=== PATIENT | female | born 1940 | race Caucasian/White ===

== ENCOUNTER → 2016-09-21 | Outpatient (REF) | payer MEDICARE, MEDICAID ==
[~2016-09-21] MED LIST: ALBU17IN INH; ALTA10CA3 PO; ASPI1TAB PO; COUM2TAB10 PO; CRES10TA32 PO; FERR325T3 PO; FURO40TA2 PO; GLIP10TA6 PO; GLIP5TAB8 PO; K-TA10TA2 PO; METO-207 PO; OMEP40CA2 PO; TIZA4CAP3 PO; TRAM50TA2 PO; VENO20IN IV; VITA100037 PO
[2016-09-21 19:32] LABS: PERCENT SATURATION 8.9 % (13.2-37.4)
== END ==
LOC: M LAB REF 17:13
PROVIDERS: ATTEND Internal Medicine Nephrology
DX: N39.0 Urinary tract infection, site not specified (principal); D64.9 Anemia, unspecified

== ENCOUNTER → 2016-09-28 | Outpatient (CLI) | payer MEDICARE, MEDICAID ==
--- NOTE | 2016-09-28 13:22 | REP ---
RENAL AND BLADDER ULTRASOUND: Real-time sonographic evaluation of the kidneys performed and demonstrates both kidneys to be mildly atrophic but normal in echotexture, right kidney measuring 8.6 x 3.7 x 5.4 cm and left kidney 8.5 x 4.6 x 5.1 cm. No renal mass, nephrolithiasis or hydronephrosis is seen. Urinary bladder measures 13.7 x 10.6 x 8.7 cm for a total volume of 825 mL. No mass or calculus is seen. Post void residual is 551 mL which is 67% of the original volume. IMPRESSION: Mild bilateral renal atrophy. No hydronephrosis. Moderate post void residual in the urinary bladder after voiding. Signed by Evin Burgos MD 09/28/2016 02:27 P
== END ==
LOC: M RAD 10:49
PROVIDERS: ATTEND Internal Medicine Nephrology
DX: N18.3 Chronic kidney disease, stage 3 (moderate) (principal); E11.22 Type 2 diabetes mellitus with diabetic chronic kidney disease

== ENCOUNTER → 2017-01-03 | Outpatient (REF) | payer MEDICARE, MEDICAID ==
[~2017-01-03] MED LIST changes: -ALTA10CA3 PO; +ALTA1CAP4 PO; -COUM2TAB10 PO; +COUM2TAB22 PO; -METO-207 PO; +METO1TAB7 PO; -VITA100037 PO; +VITA100067 PO
== END ==
LOC: M SMT 17:00
PROVIDERS: ATTEND Urology
DX: R33.9 Retention of urine, unspecified (principal)

== ENCOUNTER → 2018-01-12 | Outpatient (REF) | payer MEDICARE, MEDICAID ==
[2018-01-12 17:53] LABS: FOLATE > 24.0 NG/ML; VITAMIN B12 LEVEL 1153 PG/ML
[2018-01-12 18:11] LABS: FERRITIN 25 NG/ML (8-252); IRON (FE) 41 UG/DL (50-170); PERCENT SATURATION 11.8 % (13.2-45.0); TOTAL IRON BINDING CAPACITY 348 UG/DL (250-450)
== END ==
LOC: M LAB REF 17:07
DX: D64.9 Anemia, unspecified (principal)
CPT/HCPCS: 82746

== ENCOUNTER 2018-02-01 06:47 | Outpatient (CLI) | payer MEDICARE, MEDICAID ==
[2018-02-01] MEDS ORDERED: IRON SUCROSE 25 MG in NS 50 ML IV (07:15)
[2018-02-01] MEDS ORDERED: IRON SUCROSE 375 MG in NS 250 ML IV (08:15)
== END 2018-02-01 12:15 | disposition home or self-care (01) ==
LOC: M INFU 06:47
DX: D50.9 Iron deficiency anemia, unspecified (principal); Z79.01 Long term (current) use of anticoagulants; Z79.899 Other long term (current) drug therapy; Z79.82 Long term (current) use of aspirin; Z79.84 Long term (current) use of oral hypoglycemic drugs
CPT/HCPCS: 96365

== ENCOUNTER → 2019-03-29 | Outpatient (REF) | payer MEDICARE, MEDICAID ==
[~2019-03-29] MED LIST changes: -ASPI1TAB PO; +ASPI81TA26 PO; +CRES10TA PO; -CRES10TA32 PO; +TIZA4CAP PO; -TIZA4CAP3 PO
[2019-03-29 17:36] LABS: PERCENT SATURATION 23.2 % (13.2-45.0)
== END ==
LOC: M LAB REF 16:48
PROVIDERS: ATTEND Internal Medicine Nephrology
DX: D50.9 Iron deficiency anemia, unspecified (principal)

== ENCOUNTER 2019-04-04 12:40 | Outpatient (CLI) | payer MEDICARE, MEDICAID ==
[~2019-04-04] VITALS: Ht 152.4 cm; Wt 71.7 kg
[~2019-04-04 12:40] MED LIST changes: -OMEP40CA2 PO; +OMEP40CA97 PO
[2019-04-04 12:45] VITALS: BP 135/62
[2019-04-04] MEDS ORDERED: FERRIC CARBOXYMALTOSE INJ 750 MG in NS 250 ML IV ONE (13:00)
[2019-04-04] MEDS ORDERED: FEBU40TA4 PO (13:28)
[2019-04-04] MEDS ORDERED: COUM1TAB14 PO (13:28)
[2019-04-04 13:30] VITALS: BP 126/59
[2019-04-04 14:35] VITALS: BP 127/61
== END 2019-04-04 14:35 | disposition home or self-care (01) ==
LOC: M INFU 12:40
PROVIDERS: ATTEND Internal Medicine Nephrology
DX: D50.9 Iron deficiency anemia, unspecified (principal); Z88.8 Allergy status to other drugs, medicaments and biological substances
CPT/HCPCS: 96365; 96366; J1439

== ENCOUNTER 2019-04-11 12:37 | Outpatient (CLI) | payer MEDICARE, MEDICAID ==
[~2019-04-11] VITALS: Ht 152.4 cm; Wt 71.7 kg
[~2019-04-11 12:37] MED LIST changes: +COUM1TAB14 PO; +FEBU40TA4 PO
[2019-04-11 12:45] VITALS: BP 120/54
[2019-04-11 13:50] VITALS: BP 118/56
[2019-04-11] MEDS ORDERED: FERRIC CARBOXYMALTOSE INJ 750 MG in NS 250 ML IV ONE (14:00)
[2019-04-11 15:20] VITALS: BP 114/54
== END 2019-04-11 15:20 | disposition home or self-care (01) ==
LOC: M INFU 12:37
PROVIDERS: ATTEND Internal Medicine Nephrology
DX: D50.9 Iron deficiency anemia, unspecified (principal); N18.3 Chronic kidney disease, stage 3 (moderate); I12.9 Hypertensive chronic kidney disease with stage 1 through stage 4 chronic kidney disease, or unspecified chronic kidney disease; E11.22 Type 2 diabetes mellitus with diabetic chronic kidney disease; K21.9 Gastro-esophageal reflux disease without esophagitis; E78.00 Pure hypercholesterolemia, unspecified; Z79.82 Long term (current) use of aspirin; Z79.01 Long term (current) use of anticoagulants; Z79.899 Other long term (current) drug therapy
CPT/HCPCS: 96365; J1439

== ENCOUNTER → 2020-07-22 | Outpatient (REF) | payer MEDICARE, MEDICAID ==
[~2020-07-22] MED LIST changes: -COUM1TAB14 PO; +COUM4TAB8 PO
== END ==
LOC: M LAB REF 16:44
PROVIDERS: ATTEND Internal Medicine Nephrology
DX: N39.0 Urinary tract infection, site not specified (principal)

== ENCOUNTER 2020-09-03 15:35 | Inpatient (IN) | payer MEDICARE, MEDICAID ==
[2020-09-03] VITALS (9 sets, daily range): BP systolic 123–159; BP diastolic 55–70
[~2020-09-03] VITALS: Ht 152.4 cm; Wt 74.6 kg
[2020-09-03 16:47] LABS: BASO % 0.3 % (0.0-1.0); EOS # 0.3 10^3/uL (0.0-0.5); EOS % 2.5 % (0.0-3.0); HEMATOCRIT 21.8 % (36.0-47.0); LYMPH # 1.5 10^3/uL (1.5-5.0); LYMPH % 11.5 % (24.0-44.0); MEAN CORPUSCULAR HEMOGLOBIN 29.7 pg (27.0-33.0); MEAN CORPUSCULAR HGB CONC 31.7 g/dl (32.0-36.5); MONO # 0.7 10^3/uL (0.0-0.8); MONO % 5.1 % (2.0-8.0); NEUTROPHILS # 10.4 10^3/uL (1.5-8.5); NEUTROPHILS % 79.8 % (36.0-66.0); PLATELET COUNT, AUTOMATED 258 10^3/uL (150-450); RED BLOOD COUNT 2.32 10^6/uL (4.00-5.40)
[2020-09-03 16:51] LABS: HEMOGLOBIN 6.9 g/dl (12.0-15.5)
[2020-09-03 16:56] LABS: ALBUMIN 3.3 GM/DL (3.2-5.2); ALT/SGPT 17 U/L (12-78); BILIRUBIN,DIRECT < 0.1 MG/DL (0.0-0.2); BILIRUBIN,TOTAL < 0.1 MG/DL (0.2-1.0); BLOOD UREA NITROGEN 81 MG/DL (7-18); CARBON DIOXIDE LEVEL 27 MEQ/L (21-32); CHLORIDE LEVEL 95 MEQ/L (98-107); CREATININE FOR GFR 2.03 MG/DL (0.55-1.30); GLOMERULAR FILTRATION RATE 25.2 (>39); GLUCOSE, FASTING 447 MG/DL (70-100); POTASSIUM SERUM 4.2 MEQ/L (3.5-5.1); SODIUM LEVEL 131 MEQ/L (136-145); TOTAL PROTEIN 6.4 GM/DL (6.4-8.2)
[2020-09-03] MEDS ORDERED: HumuLIN R (REGULAR) INSULIN (NovoLIN R) **100U/ML** PER UNIT IV ONE (17:05)
[2020-09-03 17:06] LABS: INR 1.27; PROTHROMBIN TIME 16.2 SECONDS (12.5-14.3)
[2020-09-03 17:07] LABS: PARTIAL THROMBOPLASTIN TIME 29.5 SECONDS (24.2-38.5)
[2020-09-03] MEDS ORDERED: D31000TA2 PO (17:33)
[2020-09-03] MEDS ORDERED: VICT18IN SC (17:33)
[2020-09-03] MEDS ORDERED: OMEP-218 PO (17:33)
[2020-09-03 18:18] LABS: RSV AMPLIFICATION NEGATIVE (NEGATIVE)
[2020-09-03] MEDS ORDERED: GLUCAGON INJ 1MG VIAL SC PRN (19:25)
[2020-09-03] MEDS ORDERED: DEXTROSE 50% 50 ML SYRINGE IV PRN (19:25)
[2020-09-03] MEDS ORDERED: GLUCOSE 4GM CHEW TABLET PO PRN (19:25)
--- NOTE | 2020-09-03 19:54 | HPEPDOC ---
General Date of Admission 09/03/20 Date of Service: Sep 03, 2020 Chief Complaint The patient is a 80-year-old female admitted with a reason for visit of Abnormal Labs. Source: Patient, RN/MD History of Present Illness 80 year old female with h/o CKD stage 4 Baseline creatinine 1.8 to 2.0, Chronic anemia with usual Hb of 10.0, iron deficiency, h/o DVT and PE in the remote p ast on xarelto, Dm, Neuropathy, neurogenic bladder had chronic mac for 4 years successfully came off mac in jul 2020 went to see the engineering model maker for a routine visit and there blood work showed a hb of 7.0 much lower than baseline so was sent to the ED. She complained of feeling weak and tired. Denied any dizziness or light headedness. Denied any black tarry stools. She does report black hard to soft well formed stools which she attributes to her being on iron. SHe reports that she had a similar episode last year for which she was treated at [facility]. There she had an EGD and colonoscopy done and so source of bleeding was found. Today her xarelto was stopped by engineering model maker. Patient was admitted for symptomatic anemia rule out GIB. Home Medications Scheduled Aspirin (Aspirin EC) 81 Mg Tab, 81 MG PO DAILY, (Reported) Cholecalciferol (Vitamin D3) (Vitamin D3) 1,000 Unit Tablet, 1,000 UNITS PO DAILY, (Reported) Febuxostat (Uloric) 40 Mg Tablet, 40 MG PO Q2D, (Reported) Ferrous Sulfate (Ferrous Sulfate) 325 Mg Tab, 325 MG PO DAILY, (Reported) Furosemide (Furosemide) 40 Mg Tab, 40 MG PO DAILY, (Reported) Glipizide (Glipizide) 10 Mg Tab, 10 MG PO BID, (Reported) Liraglutide (Victoza 2-Dony) 0.6 Mg/0.1 Ml Pen.injctr, 1.2 MG SC DAILY, (Reported) Metoprolol Succinate (Metoprolol Succinate) 50 Mg Tab, 50 MG PO DAILY, (Reported) Omeprazole (Omeprazole) 20 Mg Capsule.dr, 20 MG PO BID, (Reported) Rosuvastatin Calcium (Crestor) 10 Mg Tab, 10 MG PO DAILY, (Reported) Scheduled PRN Tizanidine HCl (Tizanidine HCl) 4 Mg Cap, 4 MG PO TID PRN for SPASMS, (Reported) Tramadol HCl (Tramadol HCl) 50 Mg Tab, 100 MG PO QHS PRN for PAIN, (Reported) Allergies Coded Allergies: No Known Allergies (Unverified , 10/30/13) Past Medical History Medical History HYPERLIPIDEMIA TYPE 2 DIABETES NEUROGENIC BLADDER s/p CHRONIC MAC now better CHRONIC KIDNEY DISEASE ANEMIA HYPERTENSION CARDIOMYOPATHY PULMONARY EMBOLISM LEFT BUNDLE BRANCH BLOCK Surgical History CATARACTS REMOVED 2017 TUBAL LITIGATION 1975 CYSTOSCOPY 04/15/2019 LAP CHOLECYSTECTOMY 09/2019 Family History FATHER: , 75 MOTHER: , 70, DIAGNOSED WITH HEART DISEASE, DIABETES SON: ALIVE, BLOOD CLOT Social History * Smoker: former Smoker (quit more than 10 years ago.) Alcohol: rarely Drugs: denies A-FIB/CHADSVASC A-FIB History Current/History of A-Fib/PAF?: No Review of Systems Constitutional: Reports: Weakness, Fatigue; Denies: Chills, Fever, Night Sweats Eyes: Denies: Pain, Vision change ENT: Denies: Head Aches, Ear Pain, Dysphagia Skin: Denies: Rash, Lesions, Breakdown Pulmonary: Denies: Dyspnea, Cough Cardiovascular: Denies: Chest Pain, Palpitations, Orthopnea, Paroxysmal Noc. Dyspnea, Lt Headedness Gastrointestinal: Reports: Other Symptoms; Denies: Nausea, Vomiting, Abdominal Pain, Diarrhea, Melena, Hematochezia Genitourinary: Reports: Frequency, Other Symptoms; Denies: Incontinence, Retention Hematologic: Denies: Bruising, Bleeding Excessively Physical Examination General Exam: Positive: Alert, Cooperative, No Acute Distress Eye Exam: Positive: PERRLA, Conjunctiva & lids normal, EOMI; Negative: Sclera icteric Neck Exam: Positive: Supple; Negative: JVD, thyromegaly Chest Exam: Positive: Clear to auscultation, Normal air movement Heart Exam: Positive: Rate Normal, Regular Rhythm, Normal S1, Normal S2; Negative: Murmurs, Rubs Abdomen Exam: Positive: Normal bowel sounds, Soft; Negative: Tenderness, Hepatospenomegaly Extremity Exam: Negative: Clubbing, Cyanosis, Edema Vital Signs Vital Signs Date Time Temp Pulse Resp B/P (MAP) Pulse Ox O2 Delivery O2 Flow Rate FiO2 09/03/20 16:33 09/03/20 15:36 95.8 90 18 97 Room Air Laboratory Data Labs 24H Laboratory Tests 2 09/03/20 16:14: Immature Granulocyte % (Auto) 0.8, Neutrophils (%) (Auto) 79.8H, Lymphocytes (%) (Auto) 11.5L, Monocytes (%) (Auto) 5.1, Eosinophils (%) (Auto) 2.5, Basophils (%) (Auto) 0.3, Neutrophils # (Auto) 10.4H, Lymphocytes # (Auto) 1.5, Monocytes # (Auto) 0.7, Eosinophils # (Auto) 0.3, Basophils # (Auto) 0.0, Nucleated Red Blood Cells % (auto) 0.0, Prothrombin Time 16.2H, Prothromb Time International Ratio 1.27, Activated Partial Thromboplast Time 29.5, Anion Gap 9, Glomerular Filtration Rate 25.2L, Calcium Level 9.0, Direct Bilirubin < 0.1, Aspartate Amino Transf (AST/SGOT) 16, Alanine Aminotransferase (ALT/SGPT) 17, Alkaline Phosphatase 130H, Total Protein 6.4, Albumin 3.3, Albumin/Globulin Ratio 1.1L CBC/BMP Laboratory Tests 09/03/20 16:14 Assessment/Plan 80 year old female with h/o CKD stage 4 Baseline creatinine 1.8 to 2.0, Chronic anemia with usual Hb of 10.0, iron deficiency, h/o DVT and PE in the remote past on xarelto, Dm, Neuropathy, neurogenic bladder had chronic mac for 4 years successfully came off mac in jul 2020 went to see the engineering model maker for a routine visit and there blood work showed a hb of 7.0 much lower than baseline so was sent to the ED. She complained of feeling weak and tired. Denied any dizziness or light headedness. Denied any black tarry stools. She does report black hard to soft well formed stools which she attributes to her being on iron. SHe reports that she had a similar episode last year for which she was treated at [facility]. There she had an EGD and colonoscopy done and so source of bleeding was found. Today her xarelto was stopped by engineering model maker. Patient was admitted for symptomatic anemia rule out GIB. Acute on chronic anemia has history of iron deficiency and ckd so at baseline has hb of 10.0 will need to evaluate for GIB vs bone marrow disorders will check iron panel, stool occult blood, SPEP, free light chains. No overt bleeding, May be having slow chronic bleed. Had egd and colonoscopy last year will try to get records. transfuse 2 units. hold ASA pantoprazole iv bid. clear liquids CKD stage 4 creatinine at baseline Remote h/o DVT and Pulmonary embolism Xarelto stopped. Diabetes with neuropathy sugars today uncontrolled Lispro as per sliding scale HLD statin. Plan / VTE VTE Prophylaxis Ordered?: Yes JEWELL CUMMINS MD Sep 03, 2020 17:21
[2020-09-03 20:06] LABS: FOLATE > 24.0 NG/ML; VITAMIN B12 LEVEL 705 PG/ML
[2020-09-03] MEDS: HumaLOG INSULIN (NovoLOG) PER UNIT SC SCH (20:57)
[2020-09-03 21:40] LABS: FERRITIN 20 NG/ML (8-252); IRON (FE) 66 UG/DL (50-170); PERCENT SATURATION 21.4 % (13.2-45.0); TOTAL IRON BINDING CAPACITY 308 UG/DL (250-450)
[2020-09-03] MEDS: PANTOPRAZOLE 40MG VIAL (C9113 PER 1) IV SCH (22:30)
[2020-09-04] VITALS (7 sets, daily range): BP systolic 102–142; BP diastolic 56–64
[2020-09-04 00:30] LABS: HEMOGLOBIN 9.9 g/dl (12.0-15.5)
[2020-09-04 06:08] LABS: BASO # 0.1 10^3/uL (0.0-0.2); BASO % 0.4 % (0.0-1.0); EOS # 0.5 10^3/uL (0.0-0.5); EOS % 3.5 % (0.0-3.0); HEMATOCRIT 29.5 % (36.0-47.0); HEMOGLOBIN 9.7 g/dl (12.0-15.5); LYMPH # 2.3 10^3/uL (1.5-5.0); LYMPH % 16.1 % (24.0-44.0); MEAN CORPUSCULAR HEMOGLOBIN 29.5 pg (27.0-33.0); MEAN CORPUSCULAR HGB CONC 32.9 g/dl (32.0-36.5); MEAN CORPUSCULAR VOLUME 89.7 fl (80.0-96.0); MONO # 1.1 10^3/uL (0.0-0.8); NEUTROPHILS # 10.1 10^3/uL (1.5-8.5); NEUTROPHILS % 71.3 % (36.0-66.0); PLATELET COUNT, AUTOMATED 203 10^3/uL (150-450); RED BLOOD COUNT 3.29 10^6/uL (4.00-5.40); WHITE BLOOD COUNT 14.2 10^3/uL (4.0-10.0)
[2020-09-04 06:39] LABS: CREATININE FOR GFR 1.55 MG/DL (0.55-1.30)
[2020-09-04 06:40] LABS: GLOMERULAR FILTRATION RATE 34.3 (>39); POTASSIUM SERUM 4.1 MEQ/L (3.5-5.1); TOTAL PROTEIN 6.1 GM/DL (6.4-8.2)
[2020-09-04] MEDS: ROSUVASTATIN 10 MG TAB (CRESTOR) PO SCH (09:00)
[2020-09-04] MEDS: PANTOPRAZOLE 40MG VIAL (C9113 PER 1) IV SCH ×2 (09:00→20:27)
[2020-09-04] MEDS: HumaLOG INSULIN (NovoLOG) PER UNIT SC SCH ×4 (09:00→20:28)
[2020-09-04] MEDS: METOPROLOL SUCC (TopROL XL) 50MG **XL** TAB PO SCH (09:02)
[2020-09-04] MEDS ORDERED: IRON SUCROSE 500 MG in NS 250 ML IV ONE (10:00)
[2020-09-04 10:50] LABS: ALBUMIN 3.37 GM/DL (3.29-5.55); ALBUMIN % 55.2 % (55.8-66.1); ALPHA-1-GLOBULIN % 6.2 % (2.9-4.9); ALPHA-1-GLOBULINS 0.38 GM/DL (0.17-0.41); ALPHA-2-GLOBULINS 0.87 GM/DL (0.42-0.99); ALPHA-2-GLOBULINS % 14.3 % (7.1-11.8); BETA-1-GLOBULINS 0.46 GM/DL (0.28-0.60); BETA-1-GLOBULINS % 7.5 % (4.7-7.2); BETA-2-GLOBULINS 0.29 GM/DL (0.19-0.55); BETA-2-GLOBULINS % 4.8 % (3.2-6.5); GAMMA GLOBULINS 0.73 GM/DL (0.65-1.58)
[2020-09-04] MEDS: FUROSEMIDE 40 MG TAB PO SCH (11:29)
--- NOTE | 2020-09-04 12:41 | DS.PDOC ---
Discharge Summary General Date of Admission Sep 03, 2020 at 17:22 Date of Discharge 09/04/20 Discharge Summary PROCEDURES PERFORMED DURING STAY: [None]. DISCHARGE DIAGNOSES: Acute on chronic anemia Iron deficiency Chronic blood loss from chronic GIB. SECONDARY DIAGNOSIS: CKD stage 3 to 4 baseline creatinine 1.8 Diabetes with neuropathy Remote h/o DVT and Pulmonary embolism HLD H/o Neurogenic Bladder with h/o chronic mac resolved in jul 2020 COMPLICATIONS/CHIEF COMPLAINT: Anemia/Ckd. HOSPITAL COURSE: 80 year old female with h/o CKD stage 4 Baseline creatinine 1.8 to 2.0, Chronic anemia with usual Hb of 10.0, iron deficiency, h/o DVT and PE in the remote past on xarelto, Dm, Neuropathy, neurogenic bladder had chronic f oley for 4 years successfully came off mac in jul 2020 went to see the railroad repairer for a routine visit and there blood work showed a hb of 7.0 much lower than baseline so was sent to the ED. She complained of feeling weak and tired. Denied any dizziness or light headedness. Denied any black tarry stools. She does report black hard to soft well formed stools which she attributes to her being on iron. SHe reports that she had a similar episode last year for which she was treated at [facility]. There she had an EGD and colonoscopy done and so source of bleeding was found. Today her xarelto was stopped by railroad repairer. Patient was admitted for symptomatic anemia rule out GIB. Acute on chronic anemia has history of iron deficiency and ckd so at baseline has hb of 10.0 will need to evaluate for GIB vs bone marrow disorders will check iron panel, stool occult blood, SPEP, free light chains. No overt bleeding, May be having slow chronic bleed. Had egd and colonoscopy last year will try to get records. transfused 2 units. continue omeprazole Referred to hematology and Dr Hill for further work up of anemia CKD stage 4 creatinine at baseline Remote h/o DVT and Pulmonary embolism Xarelto stopped. Diabetes with neuropathy sugars today uncontrolled Lispro as per sliding scale HLD statin. DISCHARGE MEDICATIONS: Please see below. ALLERGIES: Please see below. PHYSICAL EXAMINATION ON DISCHARGE: VITAL SIGNS: Please see below. General Exam: Positive: Alert, Cooperative, No Acute Distress Eye Exam: Positive: PERRLA, Conjunctiva & lids normal, EOMI; Negative: Sclera icteric Neck Exam: Positive: Supple; Negative: JVD, thyromegaly Chest Exam: Positive: Clear to auscultation, Normal air movement Heart Exam: Positive: Rate Normal, Regular Rhythm, Normal S1, Normal S2; Negative: Murmurs, Rubs Abdomen Exam: Positive: Normal bowel sounds, Soft; Negative: Tenderness, Hepatosplenomegaly Extremity Exam: Negative: Clubbing, Cyanosis, Edema LABORATORY DATA: Please see below. ACTIVITY: [As tolerated]. DIET: Carb consistent diet DISCHARGE PLAN: Home DISPOSITION: . DISCHARGE INSTRUCTIONS: Follow up with Dr Hill in 1 to 2 weeks Referral to Hematology in 1 to 2 weeks PMD in 2 weeks DISCHARGE CONDITION: [Stable]. TIME SPENT ON DISCHARGE: 35 minutes. Vital Signs/I&Os Vital Signs Date Time Temp Pulse Resp B/P (MAP) Pulse Ox O2 Delivery O2 Flow Rate FiO2 09/04/20 09:02 97 142/64 09/04/20 08:00 98.4 18 93 Room Air I&O- Last 24 Hours up to 6 AM 09/04/20 05:59 Intake Total 1125 ml Output Total 350 ml Balance 775 ml Laboratory Data Labs 24H Laboratory Tests 2 09/03/20 16:14: Immature Granulocyte % (Auto) 0.8, Neutrophils (%) (Auto) 79.8H, Lymphocytes (%) (Auto) 11.5L, Monocytes (%) (Auto) 5.1, Eosinophils (%) (Auto) 2.5, Basophils (%) (Auto) 0.3, Neutrophils # (Auto) 10.4H, Lymphocytes # (Auto) 1.5, Monocytes # (Auto) 0.7, Eosinophils # (Auto) 0.3, Basophils # (Auto) 0.0, Nucleated Red Blood Cells % (auto) 0.0, Prothrombin Time 16.2H, Prothromb Time International Ratio 1.27, Activated Partial Thromboplast Time 29.5, Anion Gap 9, Glomerular Filtration Rate 25.2L, Calcium Level 9.0, Iron Level 66, Total Iron Binding Capacity 308, Transferrin % Saturation 21.4, Ferritin 20, Total Bilirubin < 0.1L, Direct Bilirubin < 0.1, Aspartate Amino Transf (AST/SGOT) 16, Alanine Aminotransferase (ALT/SGPT) 17, Alkaline Phosphatase 130H, Total Protein 6.4, Albumin 3.3, Albumin/Globulin Ratio 1.1L, Vitamin B12 Level 705, Folate > 24.0 09/03/20 17:14: Coronavirus (COVID-19)(PCR) NEGATIVE, Influenza Type A (RT-PCR) NEGATIVE, Influenza Type B (RT-PCR) NEGATIVE, Respiratory Syncytial Virus (PCR) NEGATIVE 09/03/20 20:57: Bedside Glucose (Misc Panel) 204H 09/04/20 05:33: Immature Granulocyte % (Auto) 0.7, Neutrophils (%) (Auto) 71.3H, Lymphocytes (%) (Auto) 16.1L, Monocytes (%) (Auto) 8.0, Eosinophils (%) (Auto) 3.5H, Basophils (%) (Auto) 0.4, Neutrophils # (Auto) 10.1H, Lymphocytes # (Auto) 2.3, Monocytes # (Auto) 1.1H, Eosinophils # (Auto) 0.5, Basophils # (Auto) 0.1, Nucleated Red Blood Cells % (auto) 0.0, Anion Gap 6L, Glomerular Filtration Rate 34.3L, Calcium Level 9.0, Total Protein (PEP) 6.1L, Albumin (%) 55.2L, Pjkla-0-Cypkevkqz (%) 6.2H, Kyeaj-6-Raycglgjw (%) 14.3H, Gamma Globulins (%) 12.0, Kbhcs-2-Uwmnzdbgb 0.38, Anifz-2-Gferxpoci 0.87, Gamma Globulins 0.73, Protein Electrophoresis Interpret SEE COMMENT, Albumin (PEP) 3.37, Mxzk-6-Nppbhext 0.46, Frxz-4-Uszgspuw (%) 7.5H, Rnse-8-Gefwumga 0.29, Beta-2- Globulin (%) 4.8 09/04/20 08:46: Bedside Glucose (Misc Panel) 356H 09/04/20 11:20: Lab Scanned Report Transfusion Record CBC/BMP Laboratory Tests 09/03/20 16:14 09/03/20 23:38 09/04/20 05:33 FSBS Laboratory Tests Test 09/03/20 20:57 09/04/20 08:46 Range/Units Bedside Glucose (Misc Panel) 204 356 83-110 MG/DL Discharge Medications Scheduled Aspirin (Aspirin EC) 81 Mg Tab, 81 MG PO DAILY, (Reported) Cholecalciferol (Vitamin D3) (Vitamin D3) 1,000 Unit Tablet, 1,000 UNITS PO DAILY, (Reported) Febuxostat (Uloric) 40 Mg Tablet, 40 MG PO Q2D, (Reported) Ferrous Sulfate (Ferrous Sulfate) 325 Mg Tab, 325 MG PO DAILY, (Reported) Furosemide (Furosemide) 40 Mg Tab, 40 MG PO DAILY, (Reported) Glipizide (Glipizide) 10 Mg Tab, 10 MG PO BID, (Reported) Liraglutide (Victoza 2-Dony) 0.6 Mg/0.1 Ml Pen.injctr, 1.2 MG SC DAILY, (Reported) Metoprolol Succinate (Metoprolol Succinate) 50 Mg Tab, 50 MG PO DAILY, (Reported) Omeprazole (Omeprazole) 20 Mg Capsule.dr, 20 MG PO BID, (Reported) Rosuvastatin Calcium (Crestor) 10 Mg Tab, 10 MG PO DAILY, (Reported) Scheduled PRN Tizanidine HCl (Tizanidine HCl) 4 Mg Cap, 4 MG PO TID PRN for SPASMS, (Reported) Tramadol HCl (Tramadol HCl) 50 Mg Tab, 100 MG PO QHS PRN for PAIN, (Reported) Allergies Coded Allergies: No Known Allergies (Unverified , 10/30/13) JEWELL CUMMINS MD Sep 04, 2020 12:41
--- NOTE | 2020-09-04 16:28 | IPNPDOC ---
Subjective Date Seen The patient was seen on 09/04/20. Subjective Chief Complaint/HPI Arlen was ready to be discharged to follow up with GI and hematology when she went for a bowel movement. He had a shruthi associated with dizziness, weakness and diaphoresis and unable to get up from the commode. So discharge was cancelled and CBC ordered. will keep in hospital for monitoring for acute GIB. if hh drops then will consult general surgery Objective Physical Examination General Exam: Positive: Alert, Cooperative, No Acute Distress Eye Exam: Positive: PERRLA, Conjunctiva & lids normal, EOMI; Negative: Sclera icteric Neck Exam: Positive: Supple; Negative: JVD, thyromegaly Chest Exam: Positive: Clear to auscultation, Normal air movement Heart Exam: Positive: Rate Normal, Regular Rhythm, Normal S1, Normal S2, Murmurs (systolic musmur. ); Negative: Rubs Abdomen Exam: Positive: Normal bowel sounds, Soft; Negative: Tenderness, Hepatospenomegaly Extremity Exam: Negative: Clubbing, Cyanosis, Edema Assessment /Plan Assessment 80 year old female with h/o CKD stage 4 Baseline creatinine 1.8 to 2.0, Chronic anemia with usual Hb of 10.0, iron deficiency, h/o DVT and PE in the remote past on xarelto, Dm, Neuropathy, neurogenic bladder had chronic mac for 4 years successfully came off mac in jul 2020 went to see the sling operator for a routine visit and there blood work showed a hb of 7.0 much lower than baseline so was sent to the ED. She complained of feeling weak and tired. Denied any dizziness or light headedness. Denied any black tarry stools. She does report black hard to soft well formed stools which she attributes to her being on iron. SHe reports that she had a similar episode last year for which she was treated at [facility]. There she had an EGD and colonoscopy done and so source of bleeding was found. Today her xarelto was stopped by sling operator. Patient was admitted for symptomatic anemia rule out GIB. GIB patient had an episode of melena in the hospital Had EGD in [facility] in august 2019 which was normal. Had colonoscopy also which just showed diverticulosis without any signs of active bleeding transfused 2 units. will monitor HH. Continue PPI. Acute blood loss anemia on chronic anemia due to GIB. has history of iron deficiency and ckd so at baseline has hb of 10.0 will need to evaluate for GIB vs bone marrow disorders iron panel shows low ferritin Had egd and colonoscopy last year will try to get records. CKD stage 4 creatinine at baseline Remote h/o DVT and Pulmonary embolism has US in Outside hospital in august 2019 was negative for DVT. had VQ scan which was intermidiate probability so was continued on anticoagulation but changed from coumadin to xarelto. Now xarelto stopped by nephrology. Moderate pulmonary hypertension/ diastolic dysfunction/ moderate mitral regurgitation from TTE in august 2019. will resume home diuretics as needed. Diabetes with neuropathy and h/o neurogenic bladder sugars today uncontrolled Lispro as per sliding scale successfully came of mac in jul 2019. after 4 years. HLD statin. Plan/VTE VTE Prophylaxis Ordered?: Yes VS, I&O, 24H, Fishbone Vital Signs/I&O Vital Signs Date Time Temp Pulse Resp B/P (MAP) Pulse Ox O2 Delivery O2 Flow Rate FiO2 09/04/20 12:00 97.7 83 18 127/60 (82) 92 Room Air I&O- Last 24 Hours up to 6 AM 09/04/20 05:59 Intake Total 1125 ml Output Total 350 ml Balance 775 ml Laboratory Data 24H LABS Laboratory Tests 2 09/03/20 17:14: Coronavirus (COVID-19)(PCR) NEGATIVE, Influenza Type A (RT-PCR) NEGATIVE, Influenza Type B (RT-PCR) NEGATIVE, Respiratory Syncytial Virus (PCR) NEGATIVE 09/03/20 20:57: Bedside Glucose (Misc Panel) 204H 09/04/20 05:33: Immature Granulocyte % (Auto) 0.7, Neutrophils (%) (Auto) 71.3H, Lymphocytes (%) (Auto) 16.1L, Monocytes (%) (Auto) 8.0, Eosinophils (%) (Auto) 3.5H, Basophils (%) (Auto) 0.4, Neutrophils # (Auto) 10.1H, Lymphocytes # (Auto) 2.3, Monocytes # (Auto) 1.1H, Eosinophils # (Auto) 0.5, Basophils # (Auto) 0.1, Nucleated Red Blood Cells % (auto) 0.0, Anion Gap 6L, Glomerular Filtration Rate 34.3L, Calcium Level 9.0, Total Protein (PEP) 6.1L, Albumin (%) 55.2L, Gcepf-0-Qphvrbafd (%) 6.2H, Eyncl-4-Olczufyvc (%) 14.3H, Gamma Globulins (%) 12.0, Ypxwb-5-Rewnwiqbe 0.38, Npacf-0-Ayeoffzvw 0.87, Gamma Globulins 0.73, Protein Electrophoresis Interpret SEE COMMENT, Albumin (PEP) 3.37, B hrh-9-Mecucbkw 0.46, Pult-6-Auvignzn (%) 7.5H, Ytzj-8-Hmwfjsck 0.29, Sfqn-2-Qmonqqlr (%) 4.8, Serum PEP Pathologist Review REV'D BY David PANG 09/04/20 08:46: Bedside Glucose (Misc Panel) 356H 09/04/20 11:20: Lab Scanned Report Transfusion Record 09/04/20 12:44: Bedside Glucose (Misc Panel) 205H 09/04/20 15:34: Bedside Glucose (Misc Panel) 344H CBC/BMP Laboratory Tests 09/03/20 23:38 09/04/20 05:33 JEWELL CUMMINS MD Sep 04, 2020 16:28
[2020-09-04 16:38] LABS: HEMATOCRIT 35.3 % (36.0-47.0); MEAN CORPUSCULAR HEMOGLOBIN 29.8 pg (27.0-33.0); MEAN CORPUSCULAR HGB CONC 33.1 g/dl (32.0-36.5); MEAN CORPUSCULAR VOLUME 90.1 fl (80.0-96.0); PLATELET COUNT, AUTOMATED 236 10^3/uL (150-450); RED BLOOD COUNT 3.92 10^6/uL (4.00-5.40); WHITE BLOOD COUNT 14.5 10^3/uL (4.0-10.0)
[2020-09-04 16:42] LABS: HEMOGLOBIN 11.7 g/dl (12.0-15.5)
[2020-09-04] MEDS: glipiZIDE (GLUCOTROL) 5 MG TAB PO SCH (17:33)
[2020-09-05 04:00] VITALS: BP 136/63
[2020-09-05 06:44] LABS: BASO # 0.1 10^3/uL (0.0-0.2); BASO % 0.4 % (0.0-1.0); EOS # 0.2 10^3/uL (0.0-0.5); EOS % 1.2 % (0.0-3.0); HEMATOCRIT 28.7 % (36.0-47.0); LYMPH # 1.9 10^3/uL (1.5-5.0); LYMPH % 11.2 % (24.0-44.0); MEAN CORPUSCULAR HEMOGLOBIN 29.7 pg (27.0-33.0); MEAN CORPUSCULAR HGB CONC 32.8 g/dl (32.0-36.5); MEAN CORPUSCULAR VOLUME 90.5 fl (80.0-96.0); MONO # 1.4 10^3/uL (0.0-0.8); MONO % 8.5 % (2.0-8.0); NEUTROPHILS # 13.2 10^3/uL (1.5-8.5); NEUTROPHILS % 78.2 % (36.0-66.0); PLATELET COUNT, AUTOMATED 212 10^3/uL (150-450); RED BLOOD COUNT 3.17 10^6/uL (4.00-5.40); WHITE BLOOD COUNT 16.9 10^3/uL (4.0-10.0)
[2020-09-05 07:06] LABS: CALCIUM LEVEL 8.6 MG/DL (8.8-10.2); CREATININE FOR GFR 1.66 MG/DL (0.55-1.30); GLOMERULAR FILTRATION RATE 31.7 (>39)
[2020-09-05 07:22] LABS: HEMOGLOBIN 9.4 g/dl (12.0-15.5)
[2020-09-05 08:00] VITALS: BP 144/58
[2020-09-05] MEDS: GASTROGRAFIN SOLUTION 30ML PO SCH ×2 (08:39→09:24)
[2020-09-05 08:40] VITALS: BP 144/58
[2020-09-05] MEDS: HumaLOG INSULIN (NovoLOG) PER UNIT SC SCH ×2 (08:40→12:54)
[2020-09-05] MEDS: ROSUVASTATIN 10 MG TAB (CRESTOR) PO SCH (08:40)
[2020-09-05] MEDS: FUROSEMIDE 40 MG TAB PO SCH (08:40)
[2020-09-05] MEDS: METOPROLOL SUCC (TopROL XL) 50MG **XL** TAB PO SCH (08:40)
[2020-09-05] MEDS: glipiZIDE (GLUCOTROL) 5 MG TAB PO SCH (08:40)
[2020-09-05] MEDS: PANTOPRAZOLE 40MG VIAL (C9113 PER 1) IV SCH (08:41)
--- NOTE | 2020-09-05 10:44 | REP ---
INDICATION: cough, elvated WBC. COMPARISON: . TECHNIQUE: Single PA view of the chest. FINDINGS: The lung kraft are clear. Cardiac size is normal. The odni, mediastinum and skeletal structures are unremarkable. IMPRESSION: Essentially negative PA view of the chest <Electronically signed by Evin Rosario > 09/05/20 1042
--- NOTE | 2020-09-05 10:52 | REP ---
INDICATION: GIB. COMPARISON: None. TECHNIQUE: Abdomen and pelvis CT with bowel contrast, without IV contrast. FINDINGS: The visualized lung kraft are unremarkable. The unenhanced liver, pancreas and spleen are unremarkable. There is a cholecystectomy. The adrenals and kidneys are unremarkable. The abdominal aorta is unremarkable except for calcified atheroma. There is no periaortic adenopathy or mass. The bowel and mesentery are unremarkable. Pelvis: The appendix is not identified, however, there is no pericecal inflammation or abscess. The terminal ileum is unremarkable. The uterus and adnexa are unremarkable. The bladder is unremarkable. There are occasional diverticula in the proximal sigmoid colon. There is no CT evidence of diverticulitis. There is no ascites or adenopathy. IMPRESSION: Cholecystectomy. Occasional diverticula in the proximal sigmoid colon without CT evidence of diverticulitis. The appendix is not identified, however, there is no pericecal inflammation or abscess. Otherwise, negative CT of the abdomen and pelvis. <Electronically signed by Evin Rosario > 09/05/20 1043
[2020-09-05 11:59] VITALS: BP 122/60
[2020-09-05 14:17] LABS: HEMATOCRIT 28.2 % (36.0-47.0); HEMOGLOBIN 9.3 g/dl (12.0-15.5); MEAN CORPUSCULAR HEMOGLOBIN 30.2 pg (27.0-33.0); MEAN CORPUSCULAR VOLUME 91.6 fl (80.0-96.0); PLATELET COUNT, AUTOMATED 206 10^3/uL (150-450); RED BLOOD COUNT 3.08 10^6/uL (4.00-5.40); WHITE BLOOD COUNT 14.4 10^3/uL (4.0-10.0)
[2020-09-05 16:00] VITALS: BP 122/72
[2020-09-05 18:11] LABS: FREE KAPPA LIGHT CHAINS SERUM 28.6 mg/L (3.3-19.4); FREE LAMBDA LIGHT CHAINS SERUM 26.7 mg/L (5.7-26.3); KAPPA/LAMBDA RATIO SERUM 1.07 (0.26-1.65)
--- NOTE | 2020-09-06 00:51 | ECGEPIP ---
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
--- NOTE | 2020-09-06 07:47 | DS.PDOC ---
Discharge Summary General Date of Admission Sep 03, 2020 at 17:22 Date of Discharge 09/05/20 Discharge Summary PROCEDURES PERFORMED DURING STAY: [None]. DISCHARGE DIAGNOSES: GIB Acute blood loss anemia could be related to Anticoagulant. Anemia of chronic disease Iron deficiency SECONDARY DIAGNOSIS: CKD stage 3 to 4 baseline creatinine 1.8 Diabetes with neuropathy Remote h/o DVT and Pulmonary embolism HLD H/o Neurogenic Bladder with h/o chronic mac resolved in jul 2020 COMPLICATIONS/CHIEF COMPLAINT: Anemia/Ckd. HOSPITAL COURSE: 80 year old female with h/o CKD stage 4 Baseline creatinine 1.8 to 2.0, Chronic anemia with usual Hb of 10.0, iron deficiency, h/o DVT and PE in the remote past on xarelto, Dm, Neuropathy, neurogenic bladder had chronic mac for 4 years successfully came off mac in jul 2020 went to see the back closer for a routine visit and there blood work showed a hb of 7.0 much lower than baseline so was sent to the ED. She complained of feeling weak and tired. Denied any dizziness or light headedness. Denied any black tarry stools. She does report black hard to soft well formed stools which she attributes to her being on iron. She reports that she had a similar episode last year for which she was treated at [facility]. There she had an EGD and colonoscopy done and so source of bleeding was found. Her xarelto was stopped by back closer. Patient was admitted for symptomatic anemia rule out GIB. Arlen did have one episode of shruthi [facility]. Her HH remained stable after t ransfusion of 2 units of PRBC> Acute Blood loss anemia on the back ground of anticoagulants. acute on chronic GIB. patient had an episode of melena in the hospital Had EGD in [facility] in august 2019 which was normal. Had colonoscopy also which just showed diverticulosis without any signs of active bleeding Xarelto stopped. transfused 2 units. Follow up SPEP, free light chains. Referred to hematology and Dr Hill for further work up of anemia continue omeprazole Chronic anemia has history of iron deficiency and ckd so at baseline has hb of 10.0 given venofer 500 mg once Leucocytocis likely reactive CT abd and pelvis with oral contrast and cxr negative no signs of infection. CKD stage 4 creatinine at baseline Moderate pulmonary hypertension/ diastolic dysfunction/ moderate mitral regurgitation from TTE in august 2019. will resume home diuretics as needed. Remote h/o DVT and Pulmonary embolism has US in Outside hospital in august 2019 was negative for DVT. had VQ scan which was intermidiate probability so was continued on anticoagulation but changed from coumadin to xarelto. Now xarelto stopped by nephrology. Diabetes with neuropathy resume home meds. HLD statin. DISCHARGE MEDICATIONS: Please see below. ALLERGIES: Please see below. PHYSICAL EXAMINATION ON DISCHARGE: VITAL SIGNS: Please see below. General Exam: Positive: Alert, Cooperative, No Acute Distress Eye Exam: Positive: PERRLA, Conjunctiva & lids normal, EOMI; Negative: Sclera icteric Neck Exam: Positive: Supple; Negative: JVD, thyromegaly Chest Exam: Positive: Clear to auscultation, Normal air movement Heart Exam: Positive: Rate Normal, Regular Rhythm, Normal S1, Normal S2; Negative: Murmurs, Rubs Abdomen Exam: Positive: Normal bowel sounds, Soft; Negative: Tenderness, Hepatosplenomegaly Extremity Exam: Negative: Clubbing, Cyanosis, Edema LABORATORY DATA: Please see below. RADIOLOGY: CT abdomen and pelvis: The visualized lung kraft are unremarkable. The unenhanced liver, pancreas and spleen are unremarkable. There is a cholecystectomy. The adrenals and kidneys are unremarkable. The abdominal aorta is unremarkable except for calcified atheroma. There is no periaortic adenopathy or mass. The bowel and mesentery are unremarkable. Pelvis: The appendix is not identified, however, there is no pericecal inflammation or abscess. The terminal ileum is unremarkable. The uterus and adnexa are unremarkable. The bladder is unremarkable. There are occasional diverticula in the proximal sigmoid colon. There is no CT evidence of diverticulitis. There is no ascites or adenopathy. IMPRESSION: Cholecystectomy. Occasional diverticula in the proximal sigmoid colon without CT evidence of diverticulitis. The appendix is not identified, however, there is no pericecal inflammation or abscess. Otherwise, negative CT of the abdomen and pelvis. ACTIVITY: [As tolerated]. DIET: Carb consistent diet DISCHARGE PLAN: Home DISCHARGE INSTRUCTIONS: Follow up with Dr Hill in 1 to 2 weeks Referral to Hematology in 1 to 2 weeks PMD in 2 weeks DISCHARGE CONDITION: [Stable]. TIME SPENT ON DISCHARGE: 35 minutes. Vital Signs/I&Os Vital Signs Date Time Temp Pulse Resp B/P (MAP) Pulse Ox O2 Delivery O2 Flow Rate FiO2 09/05/20 16:00 98.3 90 18 122/72 (89) 97 Room Air I&O- Last 24 Hours up to 6 AM 09/06/20 06:00 Intake Total 900 ml Output Total 1750 ml Balance -850 ml Laboratory Data Labs 24H Laboratory Tests 2 09/05/20 12:07: Bedside Glucose (Misc Panel) 334H 09/05/20 13:53: Nucleated Red Blood Cells % (auto) 0.2H CBC/BMP Laboratory Tests 09/05/20 13:53 FSBS Laboratory Tests Test 09/05/20 12:07 Range/Units Bedside Glucose (Misc Panel) 334 83-110 MG/DL Discharge Medications Scheduled Aspirin (Aspirin EC) 81 Mg Tab, 81 MG PO DAILY, (Reported) Cholecalciferol (Vitamin D3) (Vitamin D3) 1,000 Unit Tablet, 1,000 UNITS PO DAILY, (Reported) Febuxostat (Uloric) 40 Mg Tablet, 40 MG PO Q2D, (Reported) Ferrous Sulfate (Ferrous Sulfate) 325 Mg Tab, 325 MG PO DAILY, (Reported) Furosemide (Furosemide) 40 Mg Tab, 40 MG PO DAILY, (Reported) Glipizide (Glipizide) 10 Mg Tab, 10 MG PO BID, (Reported) Liraglutide (Victoza 2-Odny) 0.6 Mg/0.1 Ml Pen.injctr, 1.2 MG SC DAILY, (Reported) Metoprolol Succinate (Metoprolol Succinate) 50 Mg Tab, 50 MG PO DAILY, (Reported) Omeprazole (Omeprazole) 20 Mg Capsule.dr, 20 MG PO BID, (Reported) Rosuvastatin Calcium (Crestor) 10 Mg Tab, 10 MG PO DAILY, (Reported) Scheduled PRN Tizanidine HCl (Tizanidine HCl) 4 Mg Cap, 4 MG PO TID PRN for SPASMS, (Reported) Tramadol HCl (Tramadol HCl) 50 Mg Tab, 100 MG PO QHS PRN for PAIN, (Reported) Allergies Coded Allergies: No Known Allergies (Unverified , 10/30/13) JEWELL CUMMINS MD Sep 06, 2020 07:47
== END 2020-09-05 17:05 | disposition home or self-care (01) | DRG 813 ==
LOC: M ED 15:35 → M ED INP 17:22 → ENRESERV 19:40 → M PCU 20:27
PROVIDERS: ADMIT Internal Medicine Nephrology; ATTEND Internal Medicine Nephrology
PROC: 30233N1 Transfusion of Nonautologous Red Blood Cells into Peripheral Vein, Percutaneous Approach (ICD-10-PCS; principal; 2020-09-03)
DX: D68.32 Hemorrhagic disorder due to extrinsic circulating anticoagulants (principal); N18.4 Chronic kidney disease, stage 4 (severe); K92.1 Melena; D62 Acute posthemorrhagic anemia; E78.5 Hyperlipidemia, unspecified; E11.22 Type 2 diabetes mellitus with diabetic chronic kidney disease; N31.9 Neuromuscular dysfunction of bladder, unspecified; I12.9 Hypertensive chronic kidney disease with stage 1 through stage 4 chronic kidney disease, or unspecified chronic kidney disease; D50.9 Iron deficiency anemia, unspecified; E11.40 Type 2 diabetes mellitus with diabetic neuropathy, unspecified; I27.20 Pulmonary hypertension, unspecified; I44.7 Left bundle-branch block, unspecified; I34.0 Nonrheumatic mitral (valve) insufficiency; E11.65 Type 2 diabetes mellitus with hyperglycemia; Z98.49 Cataract extraction status, unspecified eye; Z90.49 Acquired absence of other specified parts of digestive tract; Z87.891 Personal history of nicotine dependence; Z79.82 Long term (current) use of aspirin; Z79.84 Long term (current) use of oral hypoglycemic drugs; Z79.899 Other long term (current) drug therapy; Z86.718 Personal history of other venous thrombosis and embolism; Z86.711 Personal history of pulmonary embolism